=== PATIENT | female | born 1955 | race Caucasian/White ===

== ENCOUNTER 2021-01-21 09:15 | Outpatient (CLI) | payer MEDICARE | END 2021-01-21 09:16 | disposition home or self-care (01) | LOC: CSHMAMMO 09:15 | PROVIDERS: ATTEND Internal Medicine Rheumatology | DX: M81.0 Age-related osteoporosis without current pathological fracture (principal); M85.859 Other specified disorders of bone density and structure, unspecified thigh | CPT/HCPCS: 77080 ==

== ENCOUNTER 2022-07-07 15:05 | Outpatient (CLI) | payer MEDICARE, OTHER | END 2022-07-07 15:06 | disposition home or self-care (01) | LOC: CSHMAMMO 15:05 | PROVIDERS: ATTEND Family Medicine | DX: Z12.31 Encounter for screening mammogram for malignant neoplasm of breast (principal); Z13.820 Encounter for screening for osteoporosis; Z78.0 Asymptomatic menopausal state; M81.0 Age-related osteoporosis without current pathological fracture; M85.851 Other specified disorders of bone density and structure, right thigh; M85.852 Other specified disorders of bone density and structure, left thigh; Z98.82 Breast implant status; Z80.3 Family history of malignant neoplasm of breast | CPT/HCPCS: 77063; 77067; 77080 ==

== ENCOUNTER 2024-12-01 11:52 | Outpatient (CLI) | payer OTHER | END 2024-12-01 11:53 | disposition home or self-care (01) | LOC: CSHMAMMO 11:52 | PROVIDERS: ATTEND Internal Medicine Endocrinology, Diabetes & Metabolism | DX: M81.8 Other osteoporosis without current pathological fracture (principal); M85.851 Other specified disorders of bone density and structure, right thigh; M85.852 Other specified disorders of bone density and structure, left thigh | CPT/HCPCS: 77080 ==